=== PATIENT | female | born 1985 | race Caucasian/White ===

== ENCOUNTER 2021-07-10 15:45 | Emergency (ER) | payer MEDICAID ==
[2021-07-10] MEDS ORDERED: IBUPROFEN600 MG PO (17:32)
== END 2021-07-10 17:57 | disposition home or self-care (01) ==
LOC: ER1 15:45
DX: S60.212A Contusion of left wrist, initial encounter (principal); F17.200 Nicotine dependence, unspecified, uncomplicated; W23.1XXA Caught, crushed, jammed, or pinched between stationary objects, initial encounter
CPT/HCPCS: 29125; 73090; 73100; 73130; 99283